=== PATIENT | male | born 1980 | race African-American/Black ===

== ENCOUNTER → 2017-01-30 | Day surgery (SDC) | payer OTHER ==
[~2017-01-30] MED LIST: NO MEDICATIONS
--- NOTE | ~2017-01-30 | OR ---
Unit #: [id number] #: [id number] Patient: AMY CRYSTAL [id number] [address] [address] [id number] O MR#: [id number] NAME: AMY CRYSTAL ROOM: Date of Procedure: 02/02/2017 Admission Date: 01/30/2017 Surgeon: Zackary Madsen M.D. : 1980 Attending Physician: Zackary Madsen M.D. Primary Care Physician: Generic Doctor Not In System OPERATIVE REPORT ADDENDUM Note that, 1 hour and 15 minutes of solid treatment was performed on the condylomata of both groins, penis, and scrotum after completion of the prep until the end of the procedure. Dictated by... Cyn Welsh/maye TD: 02/02/2017 20:58 JOB #: [id number] OPERATIVE REPORT Page 1 of 1 X Zackary Madsen MD X PROCEDURE OPERATIVE NOTE
--- NOTE | ~2017-01-30 | OR ---
Unit #: [id number] #: [id number] Patient: AMY CRYSTAL [id number] [address] [place], [place] [address] [id number] MR#: [id number] NAME: AMY CRYSTAL. ROOM: Date of Procedure: 01/30/2017 Admission Date: 01/30/2017 Surgeon: Zackary Madsen M.D. : 1980 Attending Physician: Zackary Madsen M.D. Primary Care Physician: Generic Doctor Not In System OPERATIVE REPORT JOB NOTE: CC: DR. 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 PROCEDURE PERFORMED CO2 laser ablation of extensive condyloma of both groins, thigh creases, scrotum, and penis. ANESTHESIA General. INDICATIONS FOR PROCEDURE This 36-year-old man, who presented to the office with the above complaints which he states were treated in the past, but recurred. He also was noted to have a circumferential and very significant anal warts on exam, for which he was referred to [facility], but he has not made an appointment. Note that in the office and again today, I discussed that such extensive condyloma is unusual and that the result may be less than optimal cosmetically and is probably likely to be additional recurrence best treated early. DESCRIPTION OF PROCEDURE The patient was given satisfactory general anesthesia and after reinspecting, photographs were entered in the record and he was positioned in dorsal lithotomy. The genitalia were clipped to expose all notable lesions, then wide prep and drape was performed with Betadine. The laser was assembled. I performed initial test destruction with cautery at a setting of 60 and 64. The largest lesions to expedite the debulking. The largest lesions were debulked in this manner and scraped off to the extent possible with a plaque elevator tool, gently sparing dermis in all cases. The laser was then used for some of the more adherent areas of the larger lesions. The cautery was not used on the genitals. I then performed a treatment of all areas to level of the dermis including scrotum, penis, and smaller and/or shallower lesions of the groin creases with the laser and found the setting of 4 to be good for this. After a Unit #: [id number] #: [id number] Patient: AMY CRYSTAL derm abrading with a moist sponge, I then treated all areas at a setting of 2 to provide definitive hemostasis, some wound contraction, and final depth of penetration. At the conclusion, Bactroban was applied liberally, gauze placed in the groin creases and supportive garment administered. The patient will be discharged home, provided with 30 Saxon for use as needed. Bactroban changing to triple antibiotics at home twice daily and follow up in 2 weeks. Dictated by... Cyn Welsh/maye TD: 01/30/2017 20:35 JOB #: [id number] OPERATIVE REPORT Page 1 of 1 X Zackary Madsen MD X PROCEDURE OPERATIVE NOTE
== END | disposition home or self-care (01) ==
LOC: CSUR 11:25
DX: A63.0 Anogenital (venereal) warts (principal); F17.210 Nicotine dependence, cigarettes, uncomplicated; Z98.890 Other specified postprocedural states
CPT/HCPCS: 88305; J0690; J1170; J1885; J2250; J2370; J2405; J3010